=== PATIENT | female | born 1945 | race Caucasian/White ===

== ENCOUNTER 2016-10-12 14:06 | Emergency (ER) | payer OTHER ==
[2016-10-12 14:16] VITALS: TEMP 99; BMI 28.7
--- NOTE | 2016-10-12 15:09 | PDOC ---
History of Present Illness - General Chief Complaint: Pain Stated Complaint: FEVER/ TREMORS/ Time Seen by Provider: 10/12/16 15:00 History Source: Patient - History of Present Illness Initial Comments: 10/12/16 15:58 Patient is a 71-year-old female with past medical history of hypothyroidism, high cholesterol, and osteoporosis, who presents to the emergency department today complaining of fevers, chills, back pain and dysuria. Patient states that her symptoms began approximately 7 days ago. They initially started with dysuria , frequency and urgency. Over the last 3 days she has developed fevers, chills and nausea. She has also developed back pain and myalgias. Patient states that Tylenol helps her symptoms. She has also tried taking some leftover penicillin that was in the house. Denies hematuria, vaginal discharge, vaginal bleeding, trauma, vomiting, constipation, diarrhea. Past History - Travel Traveled outside of the country in the last 30 days: No Close contact w/someone who was outside of country & ill: No - Past Medical History Allergies/Adverse Reactions: Allergies Allergy/AdvReac Type Severity Reaction Status Date / Time No Known Allergies Allergy Verified 10/12/16 14:12 Home Medications: Ambulatory Orders Levofloxacin [Levaquin -] 500 mg PO DAILY #14 tablet 10/12/16 Hypercholesterolemia: Yes Thyroid Disease: Yes (HYPO) Other medical history: OP - Surgical History Abdominal Surgery: Yes (TUBAL LIGATION) - Psycho/Social/Smoking Cessation Hx Anxiety: No Suicidal Ideation: No Smoking History: Never smoked Have you smoked in the past 12 months: No Information on smoking cessation initiated: No Hx Alcohol Use: No Drug/Substance Use Hx: No Review of Systems - Review of Systems Constitutional: Yes: Chills, Fever, Loss of Appetite, Malaise. No: Weakness Respiratory: No: Cough, Shortness of Breath, Wheezing Cardiac (ROS): No: Chest Pain, Lightheadedness, Palpitations ABD/GI: Yes: Nausea, Poor Appetite. No: Diarrhea, Vomiting : Yes: Burning, Dysuria, Frequency, Urgency. No: Discharge, Hematuria Musculoskeletal: Yes: Back Pain. No: Joint Pain, Joint Swelling, Muscle Pain All Other Systems: Reviewed and Negative *Physical Exam - Vital Signs Last Vital Signs Temp Pulse Resp BP Pulse Ox 99.0 F 98 H 18 142/96 98 10/12/16 14:13 10/12/16 14:13 10/12/16 14:13 10/12/16 14:13 10/12/16 14:13 - Physical Exam General Appearance: Yes: Nourished, Appropriately Dressed, Mild Distress, Other (Laying on bed shivering, AAOx3, breathing easily) Respiratory/Chest: positive: Lungs Clear, Normal Breath Sounds. negative: Respiratory Distress, Accessory Muscle Use Cardiovascular: positive: Regular Rhythm, Regular Rate, S1, S2 (present). negative: Murmur Gastrointestinal/Abdominal: positive: Normal Bowel Sounds, Flat, Soft. negative : Tender, Organomegaly Musculoskeletal: positive: CVA Tenderness (R). negative: CVA Tenderness (L), Muscle Spasm Integumentary: positive: Normal Color, Warm, Diaphoresis Neurologic: positive: captain waiter II-XII NML intact, Fully Oriented, Alert, Normal Mood/ Affect, Normal Response, Motor Strength 08/07 ED Treatment Course - LABORATORY CBC & Chemistry Diagram: 10/12/16 13:02 10/12/16 17:00 Medical Decision Making - Medical Decision Making 10/12/16 16:10 Pt. is a 71 y/o female with pmh of hypothyroidism, HLD, osteoporosis, who presents to the ED with 1 week of fevers, chills, back pain, urinary complaints. Clinically it appears the patient might have pyelonephritis. Kidney stones are less likely given the duration of her pain. 1. CBC, CMP, UA, UC 2. Tylenol and Zofran 3. Re-evaluate 10/12/16 17:28 Urine is has 3+ leukocytes and positive nitrites. WBC shows elevation to 15.8. CMP hemolyzed in the lab. Will re-draw. Will give one dose of levaquin now. If kidney function is intact can discharge the pt. home on PO levaquin. Pt. states her pain is better at this time. 10/12/16 18:01 CMP shows a normal BUN/Cr. Will discharge home at this time with PO levaquin. Explained the risks and benefits to PO Levaquin including the black box warning of tendon rupture. Pt. understands the risk and knows the signs and symptoms to look for including, joint pain, weakness, or unable to flex and extend joints. Pt knows if she experiences any of these things she is to stop the medication and return to the ED. Gave pt. return pre-cautions. Pt. understands all discharge instructions and all questions were answered at this time. Pt. is to follow up with her PCP in one week. 10/12/16 18:38 *DC/Admit/Observation/Transfer Diagnosis at time of Disposition: Pyelonephritis, acute - Discharge Dispostion Admit: No - Prescriptions Prescriptions: Levofloxacin [Levaquin -] 500 mg PO DAILY #14 tablet - Patient Instructions Printed Discharge Instructions: DI for Kidney Infection Additional Instructions: Tiene amna infeccin en los riones. Se le recet un antibitico llamado Levaquin. Tienes tu primera dosis hoy. Comience a qing el medicamento maana. [place] [address] di[address]. [place] toda la dosis de medicamento incluso si se siente mejor. Un efecto secundario conocido de la medicacin es la ruptura espontnea del tendn. Si siente dolor en las articulaciones, rigidez , o dolor con el movimiento, regrese a la [place]. Beber mucho lquido. El agua y el jugo de arndano son buenas opciones para mantener la hidratacin y ayudar a la infeccin. Puede qing acetaminofeno seg n sea necesario para el dolor. Usted puede qing un mximo de 4 gramos por da. Vuelva a la [place] si tiene dolor que empeora no controlado por tylenol, fiebres que empeoran, escalofros, vmitos, diarrea o cualquier otro cambio en bobby s ntomas. Print Language: INDIAN
[2016-10-12] MEDS ORDERED: ONDANSETRON *ODT* 4 MG TABLET SL ONE (15:10)
[2016-10-12] MEDS ORDERED: ACETAMINOPHEN 325 MG TABLET (FP) PO ONE (15:10)
[2016-10-12 16:19] LABS: BASOPHIL 0.2 % (0-2.0); EOSINOPHIL 0.6 % (0-4.5); MCH 28.8 pg (25.7-33.7); MCHC 32.6 g/dl (32.0-36.0); MEAN CELL VOLUME 88.5 fl (80-96); MEAN PLT VOLUME 9.9 fl (7.5-11.1); NEUTROPHILS 76.7 % (42.8-82.8); RDW 13.2 % (11.6-15.6); URINE APPEARANCE CLEAR; URINE BILIRUBIN NEGATIVE (NEGATIVE); URINE COLOR LTYELLOW; URINE GLUCOSE (UA) NEGATIVE (NEGATIVE); URINE KETONE NEGATIVE (NEGATIVE); URINE NITRITE POSITIVE (NEGATIVE); URINE PROTEIN NEGATIVE (NEGATIVE); URINE UROBILINOGEN 4.0 E.U/dl E.U./dl (0.2-1.0); WHITE BLOOD COUNT 15.6 K/mm3 (4.0-10.0)
[2016-10-12] MEDS ORDERED: ACETAMINOPHEN 325 MG TABLET (FP) ONE (16:23)
[2016-10-12] MEDS ORDERED: ONDANSETRON *ODT* 4 MG TABLET ONE (16:24)
[2016-10-12] MEDS ORDERED: ONDANSETRON 8 MG TABLET (FP) PO ONE (16:24)
[2016-10-12 17:00] LABS: URINE BLOOD 1+ (NEGATIVE); URINE LEUK ESTERASE 3+ (NEGATIVE)
[2016-10-12 17:02] LABS: URINE RBC 5 /hpf (0-3); URINE WBC 102 /hpf (3-5)
[2016-10-12] MEDS ORDERED: LEVOFLOXACIN 500 MG IVPB 100 ML IVPB ONE ×2 (17:19→18:18)
--- NOTE | 2016-10-12 17:20 | PDOC ---
*Physical Exam - Vital Signs Last Vital Signs Temp Pulse Resp BP Pulse Ox 99.0 F 98 H 18 142/96 98 10/12/16 14:13 10/12/16 14:13 10/12/16 14:13 10/12/16 14:13 10/12/16 14:13 ED Treatment Course - LABORATORY CBC & Chemistry Diagram: 10/12/16 13:02 10/12/16 17:00 - ADDITIONAL ORDERS Additional order review: Laboratory Results 10/12/16 10/12/16 13:02 13:02 Sodium Cancelled Potassium Cancelled Chloride Cancelled Carbon Dioxide Cancelled Anion Gap Cancelled BUN Cancelled Creatinine Cancelled Creat Clearance w eGFR Cancelled Random Glucose Cancelled Calcium Cancelled Total Bilirubin Cancelled AST Cancelled ALT Cancelled Alkaline Phosphatase Cancelled Total Protein Cancelled Albumin Cancelled Urine Color Ltyellow Urine Appearance Clear Urine pH 8.0 Urine Protein Negative Urine Glucose (UA) Negative Urine Ketones Negative Urine Blood 1+ H Urine Nitrite Positive Urine Bilirubin Negative Urine Urobilinogen 4.0 e.u/dl H Ur Leukocyte Esterase 3+ H Urine RBC 5 Urine WBC 102 Ur Epithelial Cells Rare 10/12/16 13:02 RBC 4.63 MCV 88.5 MCHC 32.6 RDW 13.2 MPV 9.9 Neutrophils % 76.7 Lymphocytes % 11.7 Monocytes % 10.8 H Eosinophils % 0.6 Basophils % 0.2 - Medications Given in the ED: ED Medications Discontinued Medications Generic Name Dose Route Start Last Admin Trade Name Freq PRN Reason Stop Dose Admin Acetaminophen 650 mg 10/12/16 15:10 10/12/16 16:29 Tylenol - PO 10/12/16 15:11 650 mg ONCE ONE Administration Ondansetron HCl 4 mg 10/12/16 15:10 10/12/16 16:29 Zofran Odt - SL 10/12/16 15:11 4 mg ONCE ONE Administration Medical Decision Making - Medical Decision Making 10/12/16 17:18 Pt seen by the Advanced Practice Provider under my direct supervision Pt interviewed and examined Ancillary studies reviewed I agree with plan as outlined by the Advanced Practice Provider JARETH Wheeler Vital Signs Temp Pulse Resp BP Pulse Ox 99.0 F 98 H 18 142/96 98 10/12/16 14:13 10/12/16 14:13 10/12/16 14:13 10/12/16 14:13 10/12/16 14:13 71-year-old female with past medical history of thyroid disorder, hyperlipidemia presents with right flank pain and dysuria for one week. Reports chills but endorses subjective fevers. GENERAL: Awake, alert, and fully oriented, in no acute distress. HEAD: No signs of trauma EYES: PERRLA, EOMI, sclera anicteric, conjunctiva clear ENT: Auricles normal inspection, hearing grossly normal, nares patent, oropharynx clear without exudates. NECK: Normal ROM, supple, no lymphadenopathy, JVD, or masses LUNGS: Breath sounds equal, clear to auscultation bilaterally. No wheezes, and no crackles HEART: Regular rate and rhythm, normal S1 and S2, no murmurs, rubs or gallops ABDOMEN: Soft, nontender, normoactive bowel sounds. No guarding, no rebound. No masses. +R sided CVA tenderness EXTREMITIES: Normal range of motion, no edema. No clubbing or cyanosis. No cords, erythema, or tenderness NEUROLOGICAL: Cranial nerves II through XII grossly intact. Normal speech, normal gait SKIN: Warm, Dry, normal turgor, no rashes or lesions noted. Patient's blood work and treat white count 15 and a urine is positive for nitrates and leuk trase concerning for pyelonephritis. We'll await her CMP. If the rest of blood work demonstrates no acute findings, patient can be a candidate for discharge with outpatient antibiotics. We will advise the patient when she is on 4 quinolones regarding the black box warning of tendinitis. We' ll have her return to the ER if she develops any other symptoms. *DC/Admit/Observation/Transfer Diagnosis at time of Disposition: Pyelonephritis, acute - Discharge Dispostion Disposition: HOME - Prescriptions Prescriptions: Levofloxacin [Levaquin -] 500 mg PO DAILY #14 tablet - Patient Instructions Printed Discharge Instructions: DI for Kidney Infection Additional Instructions: Tiene amna infeccin en los riones. Se le recet un antibitico llamado Levaquin. Tienes tu primera dosis hoy. Comience a qing el medicamento maana. [place] [address]. [place] toda la dosis de medicamento incluso si se siente mejor. Un efecto secundario conocido de la medicacin es la ruptura espontnea del tendn. Si siente dolor en las articulaciones, rigidez , o dolor con el movimiento, regrese a la [place]. Beber mucho lquido. El agua y el jugo de arndano son buenas opciones para mantener la hidratacin y ayudar a la infeccin. Puede qing acetaminofeno seg n sea necesario para el dolor. Usted puede qing un mximo de 4 gramos por da. Vuelva a la [place] si tiene dolor que empeora no controlado por tylenol, fiebres que empeoran, escalofros, vmitos, diarrea o cualquier otro cambio en bobby s ntomas. Print Language: CHINESE
[2016-10-12 18:05] LABS: ALBUMIN 3.1 g/dl (3.4-5.0); ANION GAP 10 (8-16); BILIRUBIN,TOTAL 0.4 mg/dL (0.2-1.0); CALCIUM 8.2 mg/dL (8.5-10.1); CO2 27 mmol/L (21-32); CREATININE 0.7 mg/dL (0.55-1.02); GLUCOSE,RANDOM 89 mg/dL (74-106); SGOT/AST 16 U/L (15-37); SGPT/ALT 15 U/L (12-78); TOT PROT 6.3 g/dl (6.4-8.2)
[2016-10-12 18:06] LABS: ALK PHOS 78 U/L (45-117)
[2016-10-12 18:18] LABS: PLATELET COUNT 200 K/MM3 (134-434)
[2016-10-12 19:13] VITALS: BP 118/80; PULSE 80
== END 2016-10-12 19:13 | disposition home or self-care (01) ==
LOC: JER 14:06
DX: N10 Acute pyelonephritis (principal); E78.00 Pure hypercholesterolemia, unspecified; E03.9 Hypothyroidism, unspecified; M81.0 Age-related osteoporosis without current pathological fracture
CPT/HCPCS: 36415; 80053; 81003; 81015; 83690; 85025; 87086; 87186; 96365; 99283-25